=== PATIENT | female | born 1960 | race Caucasian/White ===

== ENCOUNTER 2018-01-09 13:37 | Day surgery (SDC) | payer OTHER, BC ==
[2018-01-09] MEDS ORDERED: PROPOFOL 40 ML (15:21)
== END 2018-01-09 16:48 | disposition home or self-care (01) ==
LOC: GIL 13:37
DX: Z12.11 Encounter for screening for malignant neoplasm of colon (principal); K29.50 Unspecified chronic gastritis without bleeding; K64.8 Other hemorrhoids; E03.9 Hypothyroidism, unspecified
CPT/HCPCS: 43239; 88305; 88312; 88342